=== PATIENT | female | born 1990 | race Caucasian/White ===

== ENCOUNTER 2024-01-24 23:25 | Inpatient (IN) ==
--- NOTE | 2024-01-24 23:39 | Emergency Department Note ---
Impression & Plan psychosis, Jeni, Agitation, Mental health impairment, Acute psychosis ED Provider Note Name: ANDREW VILLAGRAN Age: 33 Sex: Female Arrives Via: Walk-In Informant: Patient (poor historian secondary to acute psychiatric illness), significant other ( who notes he has been with the patient for 18 years) ED Provider: Jason Green MD Chief Complaint: Acute psychosis Impression: As per impressions above Medical Decision Makin-year-old female arrived initially to have her 8-day-old baby evaluated. This was first and there was no pre-bashir care. On arrival it was clear patient is acutely manic/psychotic. She is highly agitated and tangential unable to properly give the history of what is going on or understand how severely unwell she is. She is focused on the baby being unwell. That said, fortunately looks well and is periodically looking around and is feeding. Mother however is focused on the fact that patient is unresponsive & lethargic, despite child is clearly not lethargic. She is continuously saying she needs to hear her child's voice. Mother is confusing her name with baby's name and flipping [id number]. Patient's significant other notes that patient has not slept for over 5 days. She has been increasingly anxious about her child. Baby was born at home without any pre or care. Baby has been now seen in the last 48 hours several times by medical director of hospice. Father denies mother having any history of mental health disorder or previous hospitalizations. He does note that she is at times had some agitation but never to this degree. Father is requesting that mother be treated as he feels she is not herself. Due to patient's severity of agitation risk of harming herself or others including her 8-day-old that she is not willing to give up to be evaluated, it was felt mother requires psychiatric management. Two-physician 302 was pursued given acuity and severity of situation. Patient was given IM Ativan and Haldol with vast improvement in her agitation. She eventually fell asleep and slept for several hours. Monitored without issue. Electrolyte and other laboratory workup is unremarkable. A TSH is unremarkable. Patient is not having any neurologic deficits and on awakening denies any headaches or other concerning signs or symptoms. Continues to be a bit tangential although is much calmer. She continues to not fully understand the severity of the situation. Triage/Nursing Notes reviewed by Me Differential:Mood disorder, infection, hypoglycemia, electrolyte abnormalities, cardiac sources, intracerebral event, toxicologic, trauma, neurologic, as well as other pathologies. Vital Signs: reviewed and remarkable for no significant abnormalities Interventions: Ativan 2 mg IM, Haldol 5 mg IM Labs:ED labs Reviewed by me and remarkable for no significant abnormalities. Positive for methamphetamines in system. Of note patient's PDMP reveals regular prescription for Adderall. Cardiac/Tele Monitoring: Cardiac Monitoring: An Order was placed for continuous cardiac monitoring. The monitor shows a rate of 80 with a normal sinus rhythm. Consults:Discussed with mental health case management who agree with plan for hospitalization for 302 psychiatric commitment. Plan: Disposition: Signed out to Dr Ragsdale pending placement and disposition Condition: Good PDMP: PDMP: The [place] Prescription Drug Monitoring Program was reviewed regarding this patient. Monthly prescription for Adderall consistent with a twice daily dosing schedule. History of Present Illness: 33-year-old female arrives for evaluation of her child's wellbeing. On arrival patient is manic altered and acting abnormally. Patient becoming increasingly aggressive throughout her stay. Patient is unable to understand the risks to her baby. Father took the baby from mother and handed baby to ER staff saying please take care of her. He then asked that this patient be taking care of. Mother states she is fine. She admits she has not slept in several days. She notes she is just very worried about her child. Past Medical History: Mother too manic to get history Home Medications: Denies medications Allergies: Denies allergies Vitals:Blood Pressure: 142/76, Pulse 84, RR 18, T 36.5C, O2 99% on RA Physical Exam: GENERAL: Patient is acutely psychotic and manic agitated acting abnormally. Not allowing me to do evaluate chest abdomen back NEUROLOGIC: Alert and oriented. No focal neurologic deficits appreciated SKIN: No rash, no jaundice, no diaphoresis. PSYCH: Tangential, manic, agitated, not following commands GCS: 15 ED Course: Times/Reassessments: At initial evaluation patient was being increasingly agitated to the point where she did grab me by the arm however immediately released when I pulled back. Witnessed by nursing staff Patient sedated with Ativan and Haldol to protect herself and others. I was unable to verbally deescalate nor re-direct the patient. The patient's combative behavior was risking a catastrophe. To protect the staff and the patient from harm it was necessary to chemicallyrestrain the patient. Repeat evaluation patient is breathing comfortably with clear lung sounds, normal cardiac exam and sleeping soundly. Critical Care: I have personally spent 40 minutes of critical care time in the direct management of this patient. Acute Psychosis requiring chemical sedation. This was a life/limb threatening event. This 40 minutes is in excess of all separately billable procedures. Jason Green MD Past Med/Surg History Problem List (Updated 01/25/24 @ 03:27 by Jason Green MD) psychosis (Acute) Acute psychosis (Acute) Mental health impairment (Acute) Agitation (Acute) Jeni (Acute) Social History Smoking Status: Never smoker Feels Safe at Home: Yes Allergies Allergies Allergy/AdvReac Type Severity Reaction Status Date / Time No Known Allergies Allergy Unverified 01/25/24 00:13 Home Meds Home Medications Medication Instructions Recorded Confirmed Adderall 20 mg PO BID 01/25/24 01/25/24 Results & Data (ED) Vital Signs Vital Signs - 24 hr 01/24/24 23:33 01/24/24 23:34 01/24/24 23:42 Temperature 36.5 C Temperature Source Oral Pulse Rate 147 H 144 H 105 H Pulse Rate [Finger] Pulse Rate from SpO2 Sensor 152 H Respiratory Rate 24 18 Respiratory Effort / Characteristics Respiratory Depth Blood Pressure 172/111 H Blood Pressure [Right Arm] Blood Pressure Mean 131 Blood Pressure Mean [Right Arm] Pulse Oximetry 98 95 Oxygen Delivery Method Room Air Sepsis Recent Fever Within 48 Hours No Sepsis New/Unexplained Change in Mental Status No Sepsis Action Taken by Nursing No Action Required 01/24/24 23:45 01/24/24 23:46 01/24/24 23:46 Temperature Temperature Source Pulse Rate 105 H Pulse Rate [Finger] Pulse Rate from SpO2 Sensor 104 H Respiratory Rate 24 Respiratory Effort / Characteristics Respiratory Depth Blood Pressure 120/81 120/81 Blood Pressure [Right Arm] Blood Pressure Mean 99 99 Blood Pressure Mean [Right Arm] Pulse Oximetry 96 Oxygen Delivery Method Sepsis Recent Fever Within 48 Hours Sepsis New/Unexplained Change in Mental Status Sepsis Action Taken by Nursing 01/24/24 23:47 01/24/24 23:57 01/25/24 00:02 Temperature Temperature Source Pulse Rate 90 Pulse Rate [Finger] 97 H Pulse Rate from SpO2 Sensor 112 H Respiratory Rate 18 18 Respiratory Effort / Characteristics Non-Labored Spontaneous Respiratory Depth Normal Blood Pressure 120/81 Blood Pressure [Right Arm] 109/64 Blood Pressure Mean 94 Blood Pressure Mean [Right Arm] 79 Pulse Oximetry 95 96 95 Oxygen Delivery Method Room Air Room Air Sepsis Recent Fever Within 48 Hours Sepsis New/Unexplained Change in Mental Status Sepsis Action Taken by Nursing 01/25/24 00:02 01/25/24 00:02 01/25/24 00:06 Temperature Temperature Source Pulse Rate Pulse Rate [Finger] Pulse Rate from SpO2 Sensor 93 H Respiratory Rate Respiratory Effort / Characteristics Respiratory Depth Blood Pressure 109/64 109/64 Blood Pressure [Right Arm] Blood Pressure Mean 75 75 Blood Pressure Mean [Right Arm] Pulse Oximetry 95 Oxygen Delivery Method Sepsis Recent Fever Within 48 Hours Sepsis New/Unexplained Change in Mental Status Sepsis Action Taken by Nursing 01/25/24 00:12 01/25/24 00:21 01/25/24 00:30 Temperature Temperature Source Pulse Rate Pulse Rate [Finger] Pulse Rate from SpO2 Sensor 95 H 96 H 93 H Respiratory Rate Respiratory Effort / Characteristics Respiratory Depth Blood Pressure Blood Pressure [Right Arm] Blood Pressure Mean Blood Pressure Mean [Right Arm] Pulse Oximetry 95 95 95 Oxygen Delivery Method Sepsis Recent Fever Within 48 Hours Sepsis New/Unexplained Change in Mental Status Sepsis Action Taken by Nursing 01/25/24 00:42 01/25/24 00:54 01/25/24 01:00 Temperature Temperature Source Pulse Rate Pulse Rate [Finger] Pulse Rate from SpO2 Sensor 91 H 92 H 90 Respiratory Rate Respiratory Effort / Characteristics Respiratory Depth Blood Pressure Blood Pressure [Right Arm] Blood Pressure Mean Blood Pressure Mean [Right Arm] Pulse Oximetry 95 95 95 Oxygen Delivery Method Sepsis Recent Fever Within 48 Hours Sepsis New/Unexplained Change in Mental Status Sepsis Action Taken by Nursing 01/25/24 01:03 01/25/24 01:05 01/25/24 01:05 Temperature Temperature Source Pulse Rate 93 H Pulse Rate [Finger] Pulse Rate from SpO2 Sensor 90 Respiratory Rate 18 Respiratory Effort / Characteristics Respiratory Depth Blood Pressure 95/57 L 95/57 L Blood Pressure [Right Arm] Blood Pressure Mean 69 68 Blood Pressure Mean [Right Arm] Pulse Oximetry 95 97 Oxygen Delivery Method Room Air Sepsis Recent Fever Within 48 Hours Sepsis New/Unexplained Change in Mental Status Sepsis Action Taken by Nursing 01/25/24 01:05 01/25/24 01:18 01/25/24 01:33 Temperature Temperature Source Pulse Rate Pulse Rate [Finger] Pulse Rate from SpO2 Sensor 73 87 Respiratory Rate Respiratory Effort / Characteristics Respiratory Depth Blood Pressure 95/57 L Blood Pressure [Right Arm] Blood Pressure Mean 68 Blood Pressure Mean [Right Arm] Pulse Oximetry 97 96 Oxygen Delivery Method Sepsis Recent Fever Within 48 Hours Sepsis New/Unexplained Change in Mental Status Sepsis Action Taken by Nursing 01/25/24 01:54 01/25/24 02:06 01/25/24 02:30 Temperature Temperature Source Pulse Rate Pulse Rate [Finger] Pulse Rate from SpO2 Sensor 87 85 Respiratory Rate Respiratory Effort / Characteristics Non-Labored Respiratory Depth Normal Blood Pressure Blood Pressure [Right Arm] Blood Pressure Mean Blood Pressure Mean [Right Arm] Pulse Oximetry 96 96 Oxygen Delivery Method Sepsis Recent Fever Within 48 Hours Sepsis New/Unexplained Change in Mental Status Sepsis Action Taken by Nursing 01/25/24 02:58 Temperature Temperature Source Pulse Rate 84 Pulse Rate [Finger] Pulse Rate from SpO2 Sensor Respiratory Rate 18 Respiratory Effort / Characteristics Respiratory Depth Blood Pressure 142/76 H Blood Pressure [Right Arm] Blood Pressure Mean 98 Blood Pressure Mean [Right Arm] Pulse Oximetry 99 Oxygen Delivery Method Room Air Sepsis Recent Fever Within 48 Hours Sepsis New/Unexplained Change in Mental Status Sepsis Action Taken by Nursing Laboratory Data 01/24/24 23:45 01/24/24 23:45 Lab Results 01/24/24 01/24/24 01/25/24 Range/Units 23:41 23:45 02:30 WBC 9.66 (4.8-10.8) K/ul RBC 3.80 L (4.20-5.40) M/uL Hgb 11.5 L (12.0-16.0) g/dl Hct 33.7 L (37.0-47.0) % MCV 88.7 (80.0-100.0) fL MCH 30.3 (25.0-34.0) pg MCHC 34.1 (32.0-36.0) g/dL RDW Std Deviation 39.6 (36.4-46.3) fL RDW Coeff of Ismael 12.4 (11.5-14.5) % Plt Count 387 (130-400) K/uL MPV 10.5 (9.4-12.4) fL Immature Gran % (Auto) 0.5 % Neut % (Auto) 77.0 % Lymph % (Auto) 17.2 % [place] % (Auto) 4.8 % Eos % (Auto) 0.2 % Baso % (Auto) 0.3 % Neut # (Auto) 7.44 H (1.40-6.50) K/uL Lymph # (Auto) 1.66 (1.20-3.40) K/uL [place] # (Auto) 0.46 (0.11-0.59) K/uL Eos # (Auto) 0.02 (0.00-0.50) K/uL Baso # (Auto) 0.03 (0.00-0.20) K/uL Immature Gran # (Auto) 0.05 (0.01-0.20) K/uL Sodium 135 L (136-145) mmol/L Potassium 3.3 L (3.5-5.1) mmol/L Chloride 102 (98-107) mmol/L Carbon Dioxide 23 (21-32) mmol/L Anion Gap 10 (3-11) BUN 10 (6-23) mg/dl Creatinine 0.64 (0.6-1.2) mg/dl Est Cr Clr Drug Dosing 101.6 ml/min eGFR 120.34 BUN/Creatinine Ratio 15.6 (10-20) Glucose 107 H (70-99(Fasting)) mg/dl Calcium 9.2 (8.6-10.3) mg/dl Total Bilirubin 0.3 (0.2-1.0) mg/dl AST 32 (13-39) U/L ALT 37 (7-52) U/L Alkaline Phosphatase 109 H (34-104) U/L Total Protein 6.4 (6.0-8.3) gm/dl Albumin 3.7 (3.4-5.0) gm/dl Globulin 2.7 (2.5-4.0) gm/dl Albumin/Globulin Ratio 1.4 (0.9-2) TSH 4.061 (0.300-4.500) uIu/ml Urine Color Yellow Urine Appearance Clear (Clear) Urine pH 7.5 (4.5-7.5) Ur Specific [place] 1.007 (1.000-1.030) Urine Protein Negative (Negative) Urine Glucose (UA) Negative (Negative) Urine Ketones Negative (Negative) Urine Blood Negative (Negative) Urine Nitrite Negative (Negative) Urine Bilirubin Negative (Negative) Urine Urobilinogen Negative (Negative) Ur Leukocyte Esterase Trace H (Negative) Urine WBC (Auto) 0-5 (0-5) /hpf Urine RBC (Auto) 0-2 (0-2) /hpf U Hyaline Cast (Auto) 0-2 (0-2) /lpf U Epithel Cells (Auto) 0-2 (0-2) /hpf Urine Bacteria (Auto) None Seen (None Seen) Salicylates < 3.0 L (3.0-30) mg/dl Urine Opiates Screen Neg (Neg) Ur Methadone, Qual Neg (Neg) Urine Fentanyl Screen Neg (Neg) Acetaminophen < 3 L (10-30) ug/ml Urine Barbiturates Neg (Neg) Ur Phencyclidine (PCP) Neg (Neg) U Amphetamin/Meth Scrn Pos H (Neg) MDMA (Ecstasy) Screen Neg (Neg) U Benzodiazepines Scrn Neg (Neg) Ur Cocaine Metabolite Neg (Neg) U Marijuana (THC) Screen Neg (Neg) Ethyl Alcohol mg/dL < 10.0 (<10.0) mg/dl SARS-CoV-2, RNA, NAAT NEGATIVE (NEGATIVE) Administered Medications Discontinued Medications Haloperidol Lactate (Haloperidol Lactate 5 Mg/Ml 1 Ml Vial) 5 mg IM NOW STA Stop: 01/24/24 23:39 Last Admin: 01/24/24 23:41 Dose: 5 mg Documented By: BALA Lorazepam (Lorazepam 1 Mg/1 Ml Syr Ed Inj Use) 2 mg IM ONE STA Stop: 01/24/24 23:40 Last Admin: 01/24/24 23:41 Dose: 2 mg Documented By: BALA Discharge Plan Visit Data Chief Complaint: Mental Health Evaluation Stated Complaint: MENTAL HEALTH EVAL ED Provider: Chacorta Ragsdale Discharge Problem: psychosis, Jeni, Agitation, Mental health impairment, Acute psychosis Forms Stand Alone Forms: My [facility] [employer], Suicide Prevention Resources Prescriptions Prescriptions: No Action Adderall 20 mg PO BID Referrals Referrals: PCP,NO [Primary Care Provider] -
[2024-01-24] MEDS: HALOPERIDOL LACTATE 5 MG/ML 1 ML VIAL IM STA (23:41)
[2024-01-24] MEDS: LORazepam 1 MG/1 ML SYR ED Inj Use IM STA (23:41)
[2024-01-25 01:25] LABS: Basophils # (auto) 0.03 K/uL (0.00-0.20); Basophils % (auto) 0.3 %; Eosinophils # (auto) 0.02 K/uL (0.00-0.50); Eosinophils % (auto) 0.2 %; Hematocrit (blood only) 33.7 % (37.0-47.0); Hemoglobin 11.5 g/dl (12.0-16.0); Immature Granulocytes # (auto) 0.05 K/uL (0.01-0.20); Immature Granulocytes % (auto) 0.5 %; Lymphocytes # (auto) 1.66 K/uL (1.20-3.40); Lymphocytes % (auto) 17.2 %; Mean Corpuscular Hemoglobin 30.3 pg (25.0-34.0); Mean Corpuscular Hgb Conc 34.1 g/dL (32.0-36.0); Mean Corpuscular Volume 88.7 fL (80.0-100.0); Mean Platelet Volume 10.5 fL (9.4-12.4); Monocytes # (auto) 0.46 K/uL (0.11-0.59); Monocytes % (auto) 4.8 %; Neutrophils # (auto) 7.44 K/uL (1.40-6.50); Platelet Count 387 K/uL (130-400); RDW Coefficient of Variation 12.4 % (11.5-14.5); RDW Standard Deviation 39.6 fL (36.4-46.3); White Blood Count 9.66 K/ul (4.8-10.8)
[2024-01-25 01:29] LABS: Albumin Level 3.7 gm/dl (3.4-5.0); Bilirubin,Total 0.3 mg/dl (0.2-1.0); Calcium 9.2 mg/dl (8.6-10.3); Potassium 3.3 mmol/L (3.5-5.1)
[2024-01-25 01:35] LABS: Albumin Globulin Ratio 1.4 (0.9-2); BUN Creatinine Ratio 15.6 (10-20); Creatinine Clr Calc Pharmacy 101.6 ml/min; Globulin 2.7 gm/dl (2.5-4.0); Total Protein 6.4 gm/dl (6.0-8.3)
[2024-01-25 02:49] LABS: Appearance Urine Clear (Clear); Bacteria Urine Automated None Seen (None Seen); Bilirubin Urine Negative (Negative); Blood Urine Negative (Negative); Cast Urine Automated 0-2 /lpf (0-2); Color Urine Yellow; Epithelial Cell Urine Auto 0-2 /hpf (0-2); Glucose Urine UA Negative (Negative); Ketones Urine Negative (Negative); Leukocyte Esterase Urine Trace (Negative); Nitrite Urine Negative (Negative); Protein Urine Negative (Negative); RBC Urine Automated 0-2 /hpf (0-2); Specific Gravity Urine 1.007 (1.000-1.030); Urobilinogen Urine Negative (Negative); WBC Urine Automated 0-5 /hpf (0-5); pH Urine 7.5 (4.5-7.5)
[2024-01-25 03:18] LABS: Acetaminophen < 3 ug/ml (10-30); Salicylate < 3.0 mg/dl (3.0-30)
[2024-01-25 03:34] LABS: Thyroid Stimulating Hormone 4.061 uIu/ml (0.300-4.500)
[2024-01-25 03:59] LABS: Amphetamines+Metham, Urine Pos (Neg); Barbiturates, Urine Neg (Neg); Benzodiazepine, Urine Neg (Neg); Cocaine, Urine Neg (Neg); Fentanyl, Urine Neg (Neg); MDMA (Ecstacy), Urine Neg (Neg); Marijuana, Urine Neg (Neg); Methadone, Urine Neg (Neg); Opiate, Urine Neg (Neg); Phencyclidine, Urine Neg (Neg)
--- NOTE | 2024-01-25 06:55 | Emergency Department Note ---
ED Visit Note This patient is a 33-year-old female who was signed out to me at shift change. She had been previously medically cleared. She apparently has psychosis. She is currently being evaluated by [facility] she was seen and evaluated in the ER by Dr. Agudelo. She says that [facility] cannot keep her because of staffing issues at present but she did order medications and they recommended Zyprexa to be started and used as needed. Bed search continues and the patient will be signed out at shift change to Dr. Sam. .
--- NOTE | 2024-01-25 11:35 | Psychiatric Consultation ---
Date of Consultation January 25, 2024 Impression / Recommendations Impression Mariella is a 33 yo woman 8 days s/p delivery of baby girl with no OB nor care presented to the emergency department seeking care for her infant and found to have psychosis and manic behavior, now on 302 commitment and admitted medically due to new vaginal bleeding. Psychiatry consulted for post psychosis. Diagnostically consistent with psychosis, which can present with symptoms of donnie, intense anxiety and disorganization. Post psychosis can in rare circumstances lead to delusions that increase risk of suicide and infanticide so this is considered a psychiatric emergency and requires ongoing psychiatric treatment and hospitalization once medically stable. Agree that she meets involuntary 302 commitment criteria, she remains on a 302 commitment. Olanzapine is considered one of the safer options for post psychosis and is generally considered safe in breastmilk. Therefore advise use of olanzapine. If further symptoms of donnie emerge or sleep remains challenging could consider [place] use in the future, but prefer to avoid for now given potential goals of /pumping and potential future use of milk. CYS involved. The patient remains hospitalized on a completed 302 involuntary commitment, (expiration timing will need to be verified with the original on the chart as unclear when this occurred during course of her evaluation in the ED). This patient must remain on safety precautions with a 1-on-1 and is unable to leave the hospital AMA. Overall, I spent a total of 60 minutes with this case including review of chart records, review of labwork, direct evaluation of the patient at bedside, counseling the patient, discussion of the patient with the emergency room provider, the ED CM, discussion with the psychiatric liason during clinical rounds, review of collateral historian information from the family and documentation in the electronic health record. (1) psychosis: Plan -Must remain on 1-on-1, cannot leave AMA -On 302 commitment, inpatient psychiatry bed search paused due to need for medical admission for workup of bleeding and lack of care -Medications: * Start olanzapine 5mg HS po * Olanzapine 5mg BID prn ODT for agitation/psychosis * Can also utilize ativan 1mg BID prn po for agitation if preferred * Hold prior to admission Adderall given current episode of psychosis -For behavioral emergency: olanzapine 10 mg IM x 1 (DO NOT exceed 20mg via IM sources per 24 hours, check EKG if IM dose required, NEVER co-administer with IM or IV benzodiazepines). Psych History Identifying Data 33 yo woman 8 days s/p delivery of baby girl with no OB nor care presented to the emergency department seeking care for her and found to have psychosis and manic behavior, now on 302 commitment and admitted medically due to new vaginal bleeding. Psychiatry consulted for post psychosis. Chief Complaint "I was supposed to hear Beti's voice, both see her and hear her". History of Present Illness Mariella presented to the emergency room with her partner and 8 day old baby seeking medical care for her daughter due to concerns she wasn't eating enough and having issues with constipation. While in the emergency room she was observed to have manic-type behaviors, confusion and her partner reported she not slept in about 5 days. She was very anxious about her daughter and required IM haldol and ativan and was placed on a 302 commitment due to the intensity of her symptoms and her lack of insight into the need for psychiatric attention and medical treatment. She was reported to sleep a few hours overnight after getting the haldol and ativan. On my assessment this morning she is focused on the charge level of her phone and her partner, Ej's, phone as he is planning to visit their daughter in the nursery upstairs. She makes multiple comments about wanting to ensure her daughter is getting enough breastmilk vs formula and it is clear she's been struggling to breastfed. Her partner notes that Mariella was not eating in the days prior to being in the hospital. This morning she is eating some fruit dipped in peanut butter. She feels the reason for her symptoms is because she and Ej "just need to talk and be on the same page". She denies any current SI nor HI but is tangential and has loosened associations in responding to this i.e. begins to reference need to hear her daughter's voice and to track her daughter's liquids in and out. Denies any past psychiatric history. Denies any family psychiatric history. ED notes reference that partner mentioned she possibly had experienced some periods of decreased sleep in the past but never to this extent. She apparently did not receive any care and reports she delivered her baby in the couple's car in a [employer] parking lot. States that their daughter will be seeing a plywood factory worker but hasn't yet (seems appointment will be set up once baby leaves the nursery when a safe placement can be identified by CYS). Further history per ED CM note from this morning on 01/25/2024: "Met with Mariella to read rights and attempt to complete mental health evaluation. Mariella was unable to participate in evaluation due to disorganized thinking. She was observed looking for her child in the blanket on her bed. Mariella grabbed the blanket and attempted to breast feed the blanket. Mariella was asked if she had a mental health history. She stated "oh, I have a history of crazy." Mariella stated talking about needing to care for baby and monitoring the baby's fluid intake. Mariella was advised that the baby is in the nursery being cared for. She was advised by RN that the baby had consumed two bottles and had two wet diapers. Mariella appears relieved that the baby was doing well. " Allergies Allergy/AdvReac Type Severity Reaction Status Date / Time No Known Allergies Allergy Unverified 01/25/24 00:13 Home Medications Medication Instructions Recorded Confirmed Type Adderall 20 mg PO BID 01/25/24 01/25/24 History Patient History Medical History ADHD Social History (Updated 01/25/24 @ 20:06 by Gala George PA-C) Smoking Status: Never smoker Hx Alcohol Use: No Feels Safe at Home: Yes Physical Exam Psychiatric: Orientation: alert, oriented to person, oriented to place and oriented to time Apperance: appropriately dressed Eye Contact: + fair eye contact Motor Behavior: + psychomotor agitation (restless) Speech: normal rate/rhythm/volume of speech (rapid) Affect: + anxious affect Mood: + anxious mood Thought Process: + tangential thought process and + looseness of associations Thought Content: + preoccupation Suicidal Thoughts: denies suicidal thoughts Homicidal Thoughts: denies homicidal thoughts Insight: + limited insight Judgment: + limited judgement Vital Signs (Past 24 Hours): Last Vital Signs Temp 36.5 C 01/24/24 23:42 Pulse 115 H 01/25/24 09:36 Resp 22 01/25/24 09:36 BP 141/94 H 01/25/24 09:36 Pulse Ox 100 01/25/24 09:36 O2 Del Method Room Air 01/25/24 09:36 Coding Level of Care Code 77934 IN/OBS CONSULT LVL 4,60M Diagnoses psychosis F53.1
[2024-01-25] MEDS ORDERED: OLANZapine ZYDIS 5 MG ORALLY DIS. TAB PO PRN (11:36)
[2024-01-25] MEDS: PRENATAL VITAMIN 1 TAB PO SCH (13:43)
--- NOTE | 2024-01-25 15:12 | Emergency Department Note ---
ED Visit Note I assumed care at the change of shift. The patient was under a involuntary psychiatric hold. She was a 302. She had presented with donnie and psychosis. The patient was from a home around 8 days ago. During the time under my care, she was complaining of some vaginal bleeding. An ultrasound was performed showing typical findings consistent with her recent delivery. No retained products of conception. Given the recent home , given her vaginal bleeding, given the circumstances of her involuntary commitment, psychiatric bed placement could not be obtained. The patient was denied at multiple facilities because of her other medical issues. I spoke with psychiatry case management. The decision was made for a medical admission at our hospital with a psychiatric consult. I did speak with Dr. Piña of [facility], he felt that the findings on ultrasound were typical given the circumstances, no emergent gynecologic intervention required. He will follow the patient as a consult while she is hospitalized. I did speak with case management, the on-call hospitalist was consulted. .
--- NOTE | 2024-01-25 16:48 | Ultrasound Report ---
ULTRASOUND OF THE PELVIS CLINICAL HISTORY: Vaginal bleeding. . COMPARISON STUDY: No priors TECHNIQUE: Real-time, grayscale, and color flow sonography of the pelvis is performed transabdominall y. Images are reviewed in the transverse and longitudinal planes. FINDINGS: Uterus: The postgravid uterus is enlarged and heterogeneous, measuring 11.9 x 6.6 x 8.6 cm. Endometrium: The endometrial canal is distended and filled with complex hypoechoic debris. No abnorma l vascularity is shown on color imaging Ovaries: The left ovary was not visualized due to overlying bowel gas. The right ovary is normal as i jabier, measuring 3.5 x 1.8 x 1.5 cm. Normal Doppler waveforms are shown within the right ovary. Pelvis: There is no free fluid in the cul-de-sac. No concerning adnexal lesion is seen. IMPRESSION: 1. The postgravid uterus is enlarged and heterogeneous. 2. The endometrial canal is distended and filled with complex hypoechoic debris. This likely represen ts blood products. No abnormal color flow is shown to suggest retained products of conception. Clinic al follow-up will be required. 3. The right ovary is normal as imaged. 4. Nonvisualization of the left ovary. ACT 112: Negative or not required by law. Electronically signed by: Eloy Coronado M.D. 01/25/2024 4:46 PM
--- NOTE | 2024-01-25 19:15 | History & Physical Report ---
Date of Service January 25, 2024 Assessment & Plan (1) psychosis: (2) ADHD: Plan: Patient is 33 year old female with PMH ADHD and recent vaginal delivery presented to ER on 01/24/24 for concern for her baby and was found to be manic and have psychotic features in ER. Initially in ER patient was given Haldol 5 mg IM and Ativan 2 mg IM. Labs unremarkable except for K: 3.3, UA unremarkable Psychiatrist was consulted and diagnosed psychosis and recommended admission. Patient was placed under 302 and search for psychiatry bed was attempted but failed. Psych consult. Recommends starting olanzapine 5mg po HS. Olanzapine 5mg ODT prn agitation/psychosis and holding home Adderall for now Will need continued psychiatry support and consultation Currently patient doing well and is A&O x 3 and calm and cooperative One to one observation Will have safe tray and suicidal precautions for now Substance Use: 02:30 urine tox screen: + amphetamines. Patient is on Adderall. Final drug screen pending Patient admitted to using marijuana during child but denies recurrent drug use to this provider. Case management involved given her baby status. is under care of hospital currently. Was alerted from ER nurse at 21:30 that patient admitted that significant other brought her in Suboxone today. States patient took Suboxone around 14:00 while in ER that her significant other had brought in to her CYS has already been involved and notified by correctional casework specialist in ER upon patient and baby's initial ER arrival last evening. branch office manager is updating CYS again given this new update of substance use branch office manager reports patient admitted to using Suboxone daily and used daily during her . Admits to getting Suboxone from street and not prescribed Obtain new urine drug screen now Given this new information I am recommending patient pump and dump breast milk until it is clarified what patient is actually consuming and the current condition of her . Post status: Reported home vaginal delivery of living female child on 01/16/24 per patient Having some vaginal bleeding Pelvic US showed endometrial canal is distended and filled with complex hypoechoic debris, likely represents blood products and no abnormal color flow is shown to suggest retained products of conception. ER physician spoke to AGATHA, Dr Piña foundation drill operator who did not recommend anything urgent and felt was normal given patient did not receive medical care with delivery and would be willing to see patient in consultation Consult OBGYN Patient having some difficulty with breast feeding and milk supply but thinks would like to try to continue to pump breast milk. I'm attempting in getting patient some support from women's health floor nurses. In meantime patient can attempt warm compresses and massage to breast prior to attempted pumping every 2 hours Given newly discovered substance abuse recommending patient pump and dump breast milk until it is clarified what patient is actually consuming and the current condition of her . Would not want to give infant unknown substances from mothers breast milk Case management involved as patient's is currently admitted at [facility] until patient has more stable mental/behavioral status. CYS is involved as above (3) Hypokalemia: Plan: K: 3.3 Magnesium: 1.6 Will replace KCl and magnesium orally as patient doesn't have saline lock at this time Previously poor oral intake but now eating and drinking well in ER throughout this afternoon BMP in am DVT Prophylaxis Ambulate Admit med surg Full Code as per discussion with pt Pt was seen and care coordinated with Dr White. See addendum I spent a total of 80 minutes reviewing notes, outpatient records, labs, medication, coordinating, documenting and providing care for this patient excluding time spent in the performance of separately billed services. History of Present Illness Chief Complaint: Psychosis Primary Care Provider: NO PCP Patient is 33 year old female with PMH ADHD and recent vaginal delivery presented to ER on 01/24/24 for concern for her baby. It is reported per ER chart review that patient was noted to be manic and have psychotic features. Initially in ER patient was given Haldol 5 mg IM and Ativan 2 mg IM. Patient was placed under 302 and search for psychiatry bed was attempted. Psychiatrist was consulted and diagnosed psychosis and recommended admission. It is reported that patient's infant has been hospitalized here at [facility] and is in nursery secondary to patients current mental status. During ER course patient was able to sleep and she currently reports is feeling much better. She has not required any additional medication. is at bedside. Patient admits hasn't been sleeping and hasn't been eating much. 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 Denies fever/chills, diaphoresis, N/V/D/C, STODDARD, dizziness, syncope, CP, SOB, cough, rhinorrhea, abdominal pain, extremity weakness, extremity edema, rashes, urinary symptoms. Patient currently denies SI/HI. PDMP reviewed and Adderall filled on a monthly basis, last filled on 01/12/2024 for 30-day supply States used marijuana during labor and delivery last week but otherwise does not use recreational drugs. During ER course case management has attempted getting patient placed for psychiatric admission however am told that she has not been accepted anywhere given her status. Pelvic US showed endometrial canal is distended and filled with complex hypoechoic debris, likely represents blood products and no abnormal color flow is shown to suggest retained products of conception. ER physician spoke to Dr Wang SNIDER foundation drill operator who did not recommend anything urgent and felt was normal and would be willing to see patient in consultation Allergies Allergy/AdvReac Type Severity Reaction Status Date / Time No Known Allergies Allergy Unverified 01/25/24 00:13 Home Medications Medication Instructions Recorded Confirmed Type Adderall 20 mg PO BID 01/25/24 01/25/24 History Past Med/Surg History Problem List (Updated 01/25/24 @ 20:26 by Gala George PA-C) Hypokalemia psychosis (Acute) Acute psychosis (Acute) Mental health impairment (Acute) Agitation (Acute) Jeni (Acute) Medical History ADHD Social History (Updated 01/25/24 @ 20:06 by Gala George PA-C) Smoking Status: Never smoker Hx Alcohol Use: No Feels Safe at Home: Yes Review of Systems Review of Systems: All systems reviewed & are unremarkable except as noted in HPI & below Physical Exam Physical Exam: General: no acute distress, WDWN Head: normocephalic, atraumatic Eyes: conjunctiva non-injected, anicteric Lungs: clear, no respiratory distress, no wheezing/rhonchi/rales CV: RRR, no murmur, no pretibial edema Abd: normal BS, soft, non-tender Ext: no cyanosis, no calf tenderness Neuro: A&O x 3, normal affect Skin: warm, dry Results & Data Results & Data Vital Signs (Past 12 Hours) Vital Signs Temp Pulse Pulse Resp BP BP Pulse Ox 01/25/24 17:17 36.6 C 01/25/24 17:16 108 H 20 132/74 100 01/25/24 13:46 111 H 18 152/99 H 100 01/25/24 13:05 120 H 20 167/103 H 99 01/25/24 09:36 115 H 22 141/94 H 100 O2 Del Method 01/25/24 17:17 01/25/24 17:16 Room Air 01/25/24 13:46 Room Air 01/25/24 13:05 Room Air 01/25/24 09:36 Room Air Laboratory Results Short CBC 01/24/24 Range/Units 23:45 WBC 9.66 (4.8-10.8) K/ul Hgb 11.5 L (12.0-16.0) g/dl Hct 33.7 L (37.0-47.0) % Plt Count 387 (130-400) K/uL BMP 01/24/24 23:45 Sodium 135 L Potassium 3.3 L Chloride 102 Carbon Dioxide 23 BUN 10 Creatinine 0.64 Glucose 107 H Calcium 9.2 Liver Function 01/24/24 Range/Units 23:45 Total Bilirubin 0.3 (0.2-1.0) mg/dl AST 32 (13-39) U/L ALT 37 (7-52) U/L Alkaline Phosphatase 109 H (34-104) U/L Albumin 3.7 (3.4-5.0) gm/dl Urine 01/25/24 Range/Units 02:30 Urine Color Yellow Urine Appearance Clear (Clear) Urine pH 7.5 (4.5-7.5) Ur Specific [place] 1.007 (1.000-1.030) Urine Protein Negative (Negative) Urine Glucose (UA) Negative (Negative) Diagnostic Findings Pelvis Ultrasound 01/25/24 15:47 ULTRASOUND OF THE PELVIS CLINICAL HISTORY: Vaginal bleeding. . COMPARISON STUDY: No priors TECHNIQUE: Real-time, grayscale, and color flow sonography of the pelvis is performed transabdominally. Images are reviewed in the transverse and longitudinal planes. FINDINGS: Uterus: The postgravid uterus is enlarged and heterogeneous, measuring 11.9 x 6.6 x 8.6 cm. Endometrium: The endometrial canal is distended and filled with complex hypoechoic debris. No abnormal vascularity is shown on color imaging Ovaries: The left ovary was not visualized due to overlying bowel gas. The right ovary is normal as imaged, measuring 3.5 x 1.8 x 1.5 cm. Normal Doppler waveforms are shown within the right ovary. Pelvis: There is no free fluid in the cul-de-sac. No concerning adnexal lesion is seen. IMPRESSION: 1. The postgravid uterus is enlarged and heterogeneous. 2. The endometrial canal is distended and filled with complex hypoechoic debris. This likely represents blood products. No abnormal color flow is shown to suggest retained products of conception. Clinical follow-up will be required. 3. The right ovary is normal as imaged. 4. Nonvisualization of the left ovary. ACT 112: Negative or not required by law. Electronically signed by: Eloy Coronado M.D. 01/25/2024 4:46 PM Supervising Physician Co-Signing Physician Notes Attending Addendum: Case reviewed with the advanced practitioner. I have personally performed a history and physical examination on the patient. I have reviewed the advanced practitioner's documentation on the date of service referenced in note, and I agree with, and take responsibility for the plan of care. please refer to her notes for full details patient seen and examined, records reviewed by myself as well on exam, patient seen with at bedside throughout whole encounter awake, alert, oriented x 3, answering questions appropriately states she feels better overall, mostly back to her baseline- agrees she is mostly back to her baseline denies headache, dizziness, nausea, chest pain, dyspnea, abdominal pain, problems with urination had some vaginal spotting earlier, no recurrence when inquired, patient denies alcohol, smoking or substance use only regular medication is aderrall as per patien no other symptoms VS noted and reviewed oriented x 3, not in distress, speaks in sentences with no effort nor accessory muscle use normal rate, regular rhythm, no murmurs clear breath sounds bilaterally non distended, soft, nontender no bipedal edema, erythema, warmth no neuro deficits all labs, imaging noted and reviewed ASSESSMENT AND PLAN> POST PSYCHOSIS hospitalist service requested to admit patient as Behavioral Unit has no bed availability and bed search for outpatient Psych facility is still in progress [address] as per Psych Olanzapine HS and PRN ordered per Psych, hold usual Aderrall awaiting further Psych recommendations upon re-evaluation tomorrow SUBOXONE USE denied by patient during hospitalist interview, but admitted to RN later in the evening will need to verify with patient re: prescriber and dose POST STATUS had an episode of vaginal spotting ED physician discussed case with Dr. Lane- transvaginal US reviewed, no urgent intervention recommended at this point, will follow patient as consult patient's under the care of [facility] Nursery Unit other diagnoses and plan of care as per advanced practitioner's notes Anjum White MD
[2024-01-25 20:09] LABS: Magnesium 1.6 mg/dl (1.7-2.4)
[2024-01-25] MEDS ORDERED: POLYETHYLENE (MIRALAX) 17 GM PACK PO PRN (21:29)
[2024-01-25] MEDS ORDERED: ONDANSETRON INJ 2 MG/ML 2 ML VIAL IV PRN (21:29)
[2024-01-25] MEDS: MAGNESIUM OXIDE 400 MG TAB PO SCH (21:47)
[2024-01-25] MEDS: POTASSIUM CHLORIDE CRTAB 20 MEQ TABCR PO STA (21:47)
[2024-01-25] MEDS: OLANZapine 5 MG TABLET PO SCH (21:47)
[2024-01-26 01:00] LABS: Amphetamines+Metham, Urine Pos (Neg); Barbiturates, Urine Neg (Neg); Benzodiazepine, Urine Neg (Neg); Cocaine, Urine Neg (Neg); Fentanyl, Urine Neg (Neg); MDMA (Ecstacy), Urine Neg (Neg); Marijuana, Urine Neg (Neg); Methadone, Urine Neg (Neg); Opiate, Urine Neg (Neg); Phencyclidine, Urine Neg (Neg)
[2024-01-26 06:57] LABS: Hematocrit (blood only) 37.9 % (37.0-47.0); Hemoglobin 12.7 g/dl (12.0-16.0); Mean Corpuscular Hemoglobin 30.7 pg (25.0-34.0); Mean Corpuscular Hgb Conc 33.5 g/dL (32.0-36.0); Mean Corpuscular Volume 91.5 fL (80.0-100.0); Mean Platelet Volume 10.2 fL (9.4-12.4); Platelet Count 402 K/uL (130-400); RDW Coefficient of Variation 13.1 % (11.5-14.5); RDW Standard Deviation 42.5 fL (36.4-46.3); Red Blood Count 4.14 M/uL (4.20-5.40); White Blood Count 8.05 K/ul (4.8-10.8)
[2024-01-26 07:15] LABS: BUN Creatinine Ratio 14.5 (10-20); Calcium 8.8 mg/dl (8.6-10.3); Creatinine Clr Calc Pharmacy 118.2 ml/min; Magnesium 1.8 mg/dl (1.7-2.4); Potassium 4.1 mmol/L (3.5-5.1)
[2024-01-26] MEDS: POTASSIUM CHLORIDE CRTAB 20 MEQ TABCR PO ONE (09:40)
--- NOTE | 2024-01-26 15:03 | Hospitalist Progress Note ---
Date of Service January 26, 2024 Assessment & Plan (1) psychosis: (2) ADHD: (3) Hypokalemia: Plan Patient is 33 year old female with PMH ADHD and recent vaginal delivery presented to ER on 01/24/24 for concern for her baby and was found to be manic and have psychosis. psychosis Initially in ER patient was given Haldol 5 mg IM and Ativan 2 mg IM. Labs unremarkable except for K: 3.3, UA unremarkable Psychiatrist was consulted and diagnosed psychosis and recommended admission Patient was placed under 302 and search for psychiatry bed was attempted but failed. Psych consult. Recommends starting olanzapine 5mg po HS. Olanzapine 5mg ODT prn agitation/psychosis and holding home Adderall for now Will need continued psychiatry support and consultation Vital signs stable, no acute lab abnormalities. Doing well from a medical perspective Patient and calm and cooperative, continue 1:1, safe tray and suicidal precautions for now Substance Use 02:30 urine tox screen: + amphetamines. Patient is on Adderall. Final drug screen pending Patient admitted to using marijuana during child but denies recurrent drug use to this provider. Case management involved given her baby status. is under care of hospital currently. Alerted last evening that brought patient Suboxone, which she took in ED around 1400. Is not prescribed this and gets "off the street". States she used this throughout CYS involved with CM regarding care of child Patient not interested in nursing at this point, pumping for comfort and has received support from network relations consultant Post status Reported home vaginal delivery of living female child on 01/16/24 per patient Having some vaginal bleeding Pelvic US showed endometrial canal is distended and filled with complex hypoechoic debris, likely represents blood products and no abnormal color flow is shown to suggest retained products of conception. ER physician spoke to AGATHA, Dr Piña account resolution analyst who did not recommend anything urgent and felt was normal given patient did not receive medical care with delivery and would be willing to see patient in consultation Consult OBGYN Hypomagnesemia Hypokalemia Replaced DVT Prophylaxis: Ambulate Code: FULL Dispo: Admit to med/surg, remains in psych ED bed Admit med surg Pt was seen and care coordinated with Dr. Pfeiffer. See addendum I spent a total of 55 minutes reviewing notes, outpatient records, labs, medication, coordinating, documenting and providing care for this patient excluding time spent in the performance of separately billed services. Admission and Anticipated Discharge Date Admission Date: January 25, 2024 Supervising Physician Co-Signing Physician Notes Patient was seen and examined at bedside as a follow-up of medical management for psychosis and substance use disorder. Psychiatry and gynecology are also on board. Patient is under 302. psychiatric medications per psychiatry. Holding home Adderall for now. Labs in AM. Management of status per HOME RESTORATION SERVICE CLEANER. On exam: Patient on room air, NAD, lacks insight. I have seen and examined the patient and have discussed the case with the provider above. I agree with the assessment and plan as stated. time spent 15 min. Subjective Patient seen and examined in A6. She was sitting on the ground eating her food and scribbling notes on a piece of paper. Is not able to reliably explain why she is in the hospital but mentions her daughter and repeatedly. Wants to leave. Not in any physical pain but upset emotionally having to be in the hospital. Feeling hungry with 1 loose bowel movement this morning. Review of Systems Review of Systems: At least ten systems reviewed and negative except as noted in the HPI. Physical Exam Physical Exam: Gen: WD/WN, NAD, sitting on the floor writing notes, slow to speak, needs to be redirected HEENT: Normocephalic, atraumatic, mucous membranes moist Lung: Clear to Auscultation bilaterally Heart: Regular rate, regular rhythm Abdomen: Soft, NT, ND +BS x 4 Extremities: no edema Skin: Warm, no rash Results & Data Results & Data Vital Signs (Past 12 Hours) Vital Signs Temp Pulse Resp BP Pulse Ox 01/26/24 13:59 99 H 18 135/87 100 01/26/24 09:37 36.7 C 90 16 134/74 100 Laboratory Results Short CBC 01/26/24 Range/Units 05:49 WBC 8.05 (4.8-10.8) K/ul Hgb 12.7 (12.0-16.0) g/dl Hct 37.9 (37.0-47.0) % Plt Count 402 H (130-400) K/uL BMP 01/26/24 05:49 Sodium 141 Potassium 4.1 D Chloride 107 Carbon Dioxide 28 BUN 8 Creatinine 0.55 L Glucose 81 Calcium 8.8 Diagnostic Findings Pelvis Ultrasound 01/25/24 15:47 ULTRASOUND OF THE PELVIS CLINICAL HISTORY: Vaginal bleeding. . COMPARISON STUDY: No priors TECHNIQUE: Real-time, grayscale, and color flow sonography of the pelvis is performed transabdominally. Images are reviewed in the transverse and longitudinal planes. FINDINGS: Uterus: The postgravid uterus is enlarged and heterogeneous, measuring 11.9 x 6.6 x 8.6 cm. Endometrium: The endometrial canal is distended and filled with complex hypoechoic debris. No abnormal vascularity is shown on color imaging Ovaries: The left ovary was not visualized due to overlying bowel gas. The right ovary is normal as imaged, measuring 3.5 x 1.8 x 1.5 cm. Normal Doppler waveforms are shown within the right ovary. Pelvis: There is no free fluid in the cul-de-sac. No concerning adnexal lesion is seen. IMPRESSION: 1. The postgravid uterus is enlarged and heterogeneous. 2. The endometrial canal is distended and filled with complex hypoechoic debris. This likely represents blood products. No abnormal color flow is shown to suggest retained products of conception. Clinical follow-up will be required. 3. The right ovary is normal as imaged. 4. Nonvisualization of the left ovary. ACT 112: Negative or not required by law. Electronically signed by: Eloy Coronado M.D. 01/25/2024 4:46 PM
--- NOTE | 2024-01-26 20:39 | Psychiatric Progress Note ---
Date of Service January 26, 2024 Impression / Recommendations Impression Mariella is a 33 yo woman 11 days s/p delivery of baby girl with no OB nor care presented to the emergency department seeking care for her infant and found to have psychosis and manic behavior, now on 302 commitment and admitted medically due to new vaginal bleeding. Psychiatry involved for post psychosis. Although less agitated continues to have poor insight. Remains paranoid and with intermittent bizarre/odd behavior. She continues to meet involuntary 302 commitment criteria & remains on a 302 commitment which will on 01/29/24. If patient is still here will assess for possible extension of commitment to 303 when closer to that date. This patient must remain on safety precautions with a 1-on-1 and is unable to leave the hospital AMA. CYS involved and are determining disposition of . Overall, I spent a total of 60 minutes with this case, including review of chart, direct evaluation of the patient, counseling the patient, communication with family, reviewing medication, coordination of care with hospitalist service, risk assessment, and documentation. (1) psychosis: Plan -Must remain on 1-on-1, cannot leave AMA -On 302 commitment, inpatient psychiatry bed search pending medical clearance. -Medications: * Continue olanzapine 5mg HS po * Olanzapine 5mg BID prn ODT for agitation/psychosis * Can also utilize ativan 1mg BID prn po for agitation if preferred * Hold prior to admission Adderall given current episode of psychosis -For behavioral emergency: Decrease olanzapine to 5 mg IM x 1 (DO NOT exceed 20mg via IM sources per 24 hours, check EKG if IM dose required, NEVER co- administer with IM or IV benzodiazepines). Risk Factors Assessment Mental Health Diagnoses: Yes Substance Use Disorders: Yes Protective Factors Assessment : Yes Responsible for Young Children: Yes Stable Relationships: Yes Supportive Family: Yes Interval History Identifying Information 33 year old F currently on a 302 for post- psychosis, being monitored for suboxone withdrawal. Baby born on 01/16/24 with CYS involvement currently. Psychiatric bed search ongoing. Chief Complaint "I don't know why I'm in here". Subjective Subjective Patient was seen & assessed and interval progress reviewed with treatment team & some collateral obtained from patient's mother who was present with patient today. Patient is sitting on mattress talking with her mother - was cooperative throughout interview. Noted to struggle significantly with insight into her illness - although she makes several references to behaving strangely when she first arrived in ED, she minimizes the severity of behavior and denies having any difficulties outside of lack of sleep since baby was born. Remains quite focused on the fact that she and came to get baby chacked due to no wet diapers and not for their own assessment - struggles to understand why baby was taken to nursery. Although she refers to baby not having wet diapers and being "too small" and "not moving enough", is unable to discuss this in any detail as defenses are quite high. Does not appear to understand extent of her and husbands lack of ability to provide adequate care to . Lacks understanding of concerns regarding lack of OB care throughout and delivery - says she wanted a home because wanted to "catch the baby himself", does not appear to appreciate the risk of this (especially as the y had no trained supports such as chief clinical officer or rail filler). Minimizes the fact that baby was born in the car. As interview progress becomes increasingly more defended and affect more constricted. Observed to have a paper covered extensively in writing - reads from it at times, it seems she has been writing down interactions with staff (in some cases word for word), however unclear why she is doing this. She denies over AVH or delusions, however does appear paranoid at times and recently observed cradling a blan ket as if it were a baby. Of note, patient does not want to breastfeed any longer - was finding it too stressful and overwhelming to manage. Spoke to patients mother outside of room. She reported that patient had cut off contact several months ago, for unclear reasons. As per mother, she had offered patient financial support as patient told her she was unable to afford care. Patient refused this however and then "disappeared", possibly first signs of psychosis (paranoia). Mom only found out that baby was born after she was called yesterday. She said that patients father () and his parents were now also involved. She said patient has no prior significant psychiatric history. Physical Exam Psychiatric Orientation: alert, oriented to person, oriented to place and oriented to time Apperance: appropriately dressed Eye Contact: + fair eye contact Motor Behavior: no abnormal motor movements Speech: normal rate/rhythm/volume of speech (increased latency) Affect: + depressed affect (constricted) Mood: + dysphoric mood Thought Process: + circumstantial thought process Thought Content: + preoccupation Suicidal Thoughts: denies suicidal thoughts Homicidal Thoughts: denies homicidal thoughts Insight: + poor insight Judgment: + poor judgement Vital Signs (Past 24 Hours) Last Vital Signs Temp 36.7 C 01/26/24 09:37 Pulse 99 H 01/26/24 13:59 Resp 18 01/26/24 13:59 BP 135/87 01/26/24 13:59 Pulse Ox 100 01/26/24 13:59 O2 Del Method Room Air 01/26/24 00:21 Results & Data ([facility]) Laboratory Results Laboratory Results - last 24 hr 01/26/24 01/26/24 00:11 05:49 WBC 8.05 RBC 4.14 L Hgb 12.7 Hct 37.9 MCV 91.5 MCH 30.7 MCHC 33.5 RDW Std Deviation 42.5 RDW Coeff of Ismael 13.1 Plt Count 402 H MPV 10.2 Sodium 141 Potassium 4.1 D Chloride 107 Carbon Dioxide 28 Anion Gap 6 BUN 8 Creatinine 0.55 L Est Cr Clr Drug Dosing 118.2 eGFR 124.82 BUN/Creatinine Ratio 14.5 Glucose 81 Calcium 8.8 Magnesium 1.8 Urine Opiates Screen Neg Ur Methadone, Qual Neg Urine Fentanyl Screen Neg Urine Barbiturates Neg Ur Phencyclidine (PCP) Neg U Amphetamines Confirm Pending U Amphetamin/Meth Scrn Pos H U Methamphetamin Confrm Pending MDMA (Ecstasy) Screen Neg U Benzodiazepines Scrn Neg Ur Cocaine Metabolite Neg U Marijuana (THC) Screen Neg Drug Screen Comment Pending Current Inpatient Medications Current Inpatient Medications: Current Inpatient Medications Acetaminophen (Acetaminophen 325 Mg Tab) 650 mg PO Q4H PRN PRN Reason: pain/fever Stop: 02/24/24 21:28 Magnesium Oxide (Magnesium Oxide 400 Mg Tab) 400 mg PO BID [facility]TER Stop: 02/24/24 20:59 Last Admin: 01/26/24 09:40 Dose: 400 mg Olanzapine (Olanzapine 5 Mg Tablet) 5 mg PO HS [facility]TER Stop: 02/24/24 20:59 Last Admin: 01/25/24 21:47 Dose: 5 mg Olanzapine (Olanzapine Zydis 5 Mg Orally Dis. Tab) 5 mg PO BID PRN PRN Reason: Agitation/Psychosis Stop: 02/24/24 20:59 Ondansetron HCl (Ondansetron Inj 2 Mg/Ml 2 Ml Vial) 4 mg IV Q6H PRN PRN Reason: Nausea Stop: 02/24/24 21:28 Polyethylene Glycol (Polyethylene (Miralax) 17 Gm Pack) 17 gm PO DAILY PRN PRN Reason: Constipation Stop: 02/24/24 21:28 Prenat Multivit/[place]/Iron/Folic Ac ( Vitamin 1 Tab) 1 tab PO [facility] [place] Stop: 02/24/24 11:59 Last Admin: 01/26/24 09:40 Dose: 1 tab
[2024-01-27] MEDS: ACETAMINOPHEN 325 MG TAB PO PRN (08:18)
--- NOTE | 2024-01-27 15:15 | Hospitalist Progress Note ---
Date of Service January 27, 2024 Assessment & Plan (1) psychosis: (2) ADHD: (3) Hypokalemia: Plan Patient is 33 year old female with PMH ADHD and recent vaginal delivery presented to ER on 01/24/24 for concern for her baby and was found to be manic and have psychosis. psychosis Initially in ER patient was given Haldol 5 mg IM and Ativan 2 mg IM. Labs unremarkable except for K: 3.3, UA unremarkable Psychiatrist was consulted and diagnosed psychosis and recommended admission Patient was placed under 302 and search for psychiatry bed was attempted but failed. Psych consult. Recommends starting olanzapine 5mg po HS. Olanzapine 5mg ODT prn agitation/psychosis and holding home Adderall for now Ativan 1mg PO BID PRN anxiety/agitation Will need continued psychiatry support Appears stable, doing well from a medical perspective Patient and calm and cooperative, continue 1:1, safe tray and suicidal precautions for now Substance Use 02:30 urine tox screen: + amphetamines. Patient is on Adderall. Final drug screen pending Patient admitted to using marijuana during child but initially denied other drug use, but later found to have taken Suboxone brought by around 1400 on 01/24 Admitted to taking non-prescribed Suboxone throughout and after CYS involved with CM regarding care of child, currently with grandparents Post status Reported home vaginal delivery of living female child on 01/16/24 per patient Having some post- vaginal bleeding Pelvic US showed endometrial canal is distended and filled with complex hypoechoic debris, likely represents blood products and no abnormal color flow is shown to suggest retained products of conception. ER physician spoke to OBMARCUS, Dr Piña care information associate who did not recommend anything urgent and felt was normal given patient did not receive medical care with delivery Dr. Bernstein saw patient today - recommends against breast feeding or giving pumped milk to baby for [address] in system Patient unsure if she wants to continue nursing - has been applying warm compresses and pumping for comfort Discussed with obgyn RN, will try to send someone from dept for further nursing education, reassurance Hypomagnesemia Hypokalemia Replaced DVT Prophylaxis: Ambulate Code: FULL Dispo: Admit to med/surg, remains in psych ED bed Admit med surg Pt was seen and care coordinated with Dr. Pfeiffer. See addendum I spent a total of 55 minutes reviewing notes, outpatient records, labs, medication, coordinating, documenting and providing care for this patient excluding time spent in the performance of separately billed services. Admission and Anticipated Discharge Date Admission Date: January 25, 2024 Supervising Physician Co-Signing Physician Notes Pt not seen personally. Noted to be stable per d/w Danielle PALACIO. Pending psychiatric disposition. Subjective Patient seen and examined in A6. Has been writing down notes and asked to read them to RN and myself. Expressing a lot of anxiety over hospitalization, medications and baby. Looking forward to visiting. Asking repeatedly when she can go home. No F/C, CP, SOB, N/V, abd pain. Denies additional loose stools or abdominal discomfort. Having some post vaginal bleeding. Breasts feel swollen and sore, R>L. RN says patient was up moving around all night except for 2 hour nap this AM. Refused last night's Olanzapine dose. Review of Systems Review of Systems: At least ten systems reviewed and negative except as noted in the HPI. Physical Exam Physical Exam: Gen: WD/WN, NAD, sitting on the floor writing notes, slow to speak, needs to be redirected HEENT: Normocephalic, atraumatic, mucous membranes moist Lung: Clear to Auscultation bilaterally Heart: Regular rate, regular rhythm Abdomen: Soft, NT, ND +BS x 4 Extremities: no edema Skin: Warm, no rash Results & Data Results & Data Vital Signs (Past 12 Hours) Vital Signs Temp Pulse Resp BP Pulse Ox 01/27/24 11:26 36.7 C 109 H 18 151/106 H 100 Diagnostic Findings Pelvis Ultrasound 01/25/24 15:47 ULTRASOUND OF THE PELVIS CLINICAL HISTORY: Vaginal bleeding. . COMPARISON STUDY: No priors TECHNIQUE: Real-time, grayscale, and color flow sonography of the pelvis is performed transabdominally. Images are reviewed in the transverse and longitudinal planes. FINDINGS: Uterus: The postgravid uterus is enlarged and heterogeneous, measuring 11.9 x 6.6 x 8.6 cm. Endometrium: The endometrial canal is distended and filled with complex hypoechoic debris. No abnormal vascularity is shown on color imaging Ovaries: The left ovary was not visualized due to overlying bowel gas. The right ovary is normal as imaged, measuring 3.5 x 1.8 x 1.5 cm. Normal Doppler waveforms are shown within the right ovary. Pelvis: There is no free fluid in the cul-de-sac. No concerning adnexal lesion is seen. IMPRESSION: 1. The postgravid uterus is enlarged and heterogeneous. 2. The endometrial canal is distended and filled with complex hypoechoic debris. This likely represents blood products. No abnormal color flow is shown to suggest retained products of conception. Clinical follow-up will be required. 3. The right ovary is normal as imaged. 4. Nonvisualization of the left ovary. ACT 112: Negative or not required by law. Electronically signed by: Eloy Coronado M.D. 01/25/2024 4:46 PM
[2024-01-27] MEDS ORDERED: LORazepam 1 MG TAB PO PRN (15:18)
--- NOTE | 2024-01-27 15:37 | Consultation ---
Date of Consultation January 27, 2024 History of Present Illness Reason for Consultation: 33 f s/p home delivery post 11 days with suicidal ideations now in the ER. No care and home delivery. Baby in grandparents custody at this time. Patient is on suicide watch now. Has used methamphetamine recently. With positive drug screen. This case ws previously discussed with ER physician Dr. Sam with Dr. Piña. Should not be breast feeding for 1 week until the drug is out of her system. Discussed with Danielle Agudelo PA-C Attending Physician: Vanessa Pfeiffer MD Allergies Allergy/AdvReac Type Severity Reaction Status Date / Time No Known Allergies Allergy Unverified 01/25/24 00:13 Home Medications Medication Instructions Recorded Confirmed Type Adderall 20 mg PO BID 01/25/24 01/25/24 History Patient History Medical History ADHD Social History (Updated 01/25/24 @ 20:06 by Gala George PA-C) Smoking Status: Unknown if ever smoked Hx Alcohol Use: No Hx Substance Use: Yes Substance Use Type Other:: Suboxone, Adderall Preferred Language: Pashto Communication Ability: Impaired Store Operations Specialist Required: No Current Living Situation: Spouse Other Information That Helps Us Care for You: No Feels Safe at Home: Yes Safety Concerns: Feels Safe At This Time Assistive Devices: None Results & Data Vital Signs (Past 12 Hours) Vital Signs Temp Pulse Resp BP Pulse Ox 01/27/24 11:26 36.7 C 109 H 18 151/106 H 100
[2024-01-27] MEDS: MELATONIN 3 MG TAB PO PRN (21:13)
--- NOTE | 2024-01-27 21:17 | Psychiatric Progress Note ---
Date of Service January 27, 2024 Impression / Recommendations Impression Mariella is a 33 yo woman 11 days s/p delivery of baby girl with no OB nor care presented to the emergency department seeking care for her infant and found to have psychosis and manic behavior, now on 302 commitment and admitted medically due to new vaginal bleeding. Psychiatry involved for post psychosis. Although less agitated continues to have poor insight. Remains paranoid and with ongoing bizarre/odd behavior. She continues to meet involuntary 302 commitment criteria & remains on a 302 commitment which will on 01/30/24. If patient is still here will assess for possible extension of commitment to 303 when closer to that date. This patient must remain on safety precautions with a 1-on-1 and is unable to leave the hospital AMA. CYS involved and are determining disposition of . Overall, I spent a total of 80 minutes with this case, including review of chart, direct evaluation of the patient, counseling the patient, communication with family, reviewing medication, coordination of care with hospitalist service, risk assessment, and documentation. (1) psychosis: Plan -Must remain on 1-on-1, cannot leave AMA -On 302 commitment, inpatient psychiatry bed search pending medical clearance. Expires on 01/30/24 -Medications: * Continue olanzapine 5mg HS po * Olanzapine 5mg BID prn ODT for agitation/psychosis * Can also utilize ativan 1mg BID prn po for agitation if preferred * Hold prior to admission Adderall given current episode of psychosis -For behavioral emergency: Decrease olanzapine to 5 mg IM x 1 (DO NOT exceed 20mg via IM sources per 24 hours, check EKG if IM dose required, NEVER co- administer with IM or IV benzodiazepines). Risk Factors Assessment Mental Health Diagnoses: Yes Substance Use Disorders: Yes Protective Factors Assessment : Yes Responsible for Young Children: Yes Stable Relationships: Yes Supportive Family: Yes Interval History Identifying Information 33 year old F currently on a 302 for post- psychosis, being monitored for suboxone withdrawal. Baby born on 01/16/24 with CYS involvement currently. Psychiatric bed search ongoing. Chief Complaint Post- psychosis Subjective Subjective Patient was seen & assessed and interval progress reviewed with psychiatric liaison. Patient sitting in room with mom at bedside - observed to have multiple pieces of paper covered with extensive writing. She reads from this paper several times and it seems she has been writing down various details of her stay here and of events leading up to coming to ER. Difficult to make sense of the writing whenever she does read from it. Some IOR noted as well as some paranoia. Is notably disheveled. ALthough is pleasant and cooperative during interview, lacks insight into why she is on a 302 and why there are safety concerns about . Noted to perseverate and ruminate on the fact that she and only came to ER to have assessed under direction of gray mixing operator - is unable to appreciate why staff had any further concerns. Is unable to meaningfully discuss her initial presentation and need for IM medication - states she was too "upset". Has been observed by staff to have been sitting on the floor writing extensively with bizarre preoccupation with these writing, other times has been observed inappropriately lifting her shirt to show that she is lactating - does not seem to appreciate the inappropriate nature of behaviors. Patient reports that she had no care because she was unable to afford it and because she wanted a home because she wanted to deliver the baby himself - "that was really important to me". When questioned about giving of Ash ulloa says this was because they were driving to the hospital - however they never went to hospital after to have c are for baby nor for herself. Does not demonstrate any insight into the risk associated with this. Spoke to patients mom alone without patient . She expressed that she had offered patient to help pay for care and patient refused, then shortly into stopped talking to mom and mom had no contact with them until the day prior when she found out the baby was born due to CYS involvement with the case. She is unsure what the custody status is at this time. Physical Exam Psychiatric Orientation: alert, oriented to person, oriented to place and oriented to time Apperance: appropriately dressed Eye Contact: + fair eye contact Motor Behavior: no abnormal motor movements and + psychomotor agitation (restless) Speech: normal rate/rhythm/volume of speech (increased latency) Affect: + depressed affect (constricted) and + anxious affect Mood: + anxious mood and + dysphoric mood Thought Process: + circumstantial thought process, + tangential thought process and + looseness of associations Thought Content: + preoccupation Suicidal Thoughts: denies suicidal thoughts Homicidal Thoughts: denies homicidal thoughts Insight: + poor insight Judgment: + poor judgement Vital Signs (Past 24 Hours) Last Vital Signs Temp 36.7 C 01/27/24 11:26 Pulse 109 H 01/27/24 11:26 Resp 18 01/27/24 11:26 BP 151/106 H 01/27/24 11:26 Pulse Ox 100 01/27/24 11:26 O2 Del Method Room Air 01/26/24 00:21 Results & Data ([facility]) Current Inpatient Medications Current Inpatient Medications: Current Inpatient Medications Acetaminophen (Acetaminophen 325 Mg Tab) 650 mg PO Q4H PRN PRN Reason: pain/fever Stop: 02/24/24 21:28 Last Admin: 01/27/24 19:36 Dose: 650 mg Ibuprofen (Ibuprofen 200 Mg Tab) 400 mg PO Q6H PRN PRN Reason: Pain or Fever Stop: 02/26/24 15:16 Lorazepam (Lorazepam 1 Mg Tab) 1 mg PO BID PRN PRN Reason: Anxiety/Agitation Stop: 02/26/24 20:59 Magnesium Oxide (Magnesium Oxide 400 Mg Tab) 400 mg PO BID [facility] Stop: 02/24/24 20:59 Last Admin: 01/27/24 20:38 Dose: 400 mg Melatonin (Melatonin 3 Mg Tab) 3 mg PO HS PRN PRN Reason: Sleep Stop: 02/26/24 20:41 Last Admin: 01/27/24 21:13 Dose: 3 mg Olanzapine (Olanzapine 5 Mg Tablet) 5 mg PO HS [facility] Stop: 02/24/24 20:59 Last Admin: 01/27/24 20:33 Dose: Not Given Olanzapine (Olanzapine Zydis 5 Mg Orally Dis. Tab) 5 mg PO BID PRN PRN Reason: Agitation/Psychosis Stop: 02/24/24 20:59 Ondansetron HCl (Ondansetron Inj 2 Mg/Ml 2 Ml Vial) 4 mg IV Q6H PRN PRN Reason: Nausea Stop: 02/24/24 21:28 Polyethylene Glycol (Polyethylene (Miralax) 17 Gm Pack) 17 gm PO DAILY PRN PRN Reason: Constipation Stop: 02/24/24 21:28 Prenat Multivit/[place]/Iron/Folic Ac ( Vitamin 1 Tab) 1 tab PO QAM [facility] Stop: 02/24/24 11:59 Last Admin: 01/27/24 08:30 Dose: 1 tab
[2024-01-27] MEDS: IBUPROFEN 200 MG TAB PO PRN (23:36)
[2024-01-28 05:53] VITALS: TEMP 97.9
[2024-01-28 07:36] VITALS: BP 146/95; PULSE 105; RESP 20; O2SAT 99
--- NOTE | 2024-01-28 10:00 | Hospitalist Progress Note ---
Date of Service January 28, 2024 Assessment & Plan (1) psychosis: (2) ADHD: (3) Hypokalemia: Plan Patient is 33 year old female with PMH ADHD and recent vaginal delivery presented to ER on 01/24/24 for concern for her baby and was found to be manic and have psychosis. psychosis Initially in ER patient was given Haldol 5 mg IM and Ativan 2 mg IM. Labs unremarkable except for K: 3.3, UA unremarkable Psychiatrist was consulted and diagnosed psychosis and recommended admission Patient was placed under 302 and search for psychiatry bed was attempted but failed. Psych consult. Recommends starting olanzapine 5mg po HS. Olanzapine 5mg ODT prn agitation/psychosis and holding home Adderall for now Ativan 1mg PO BID PRN anxiety/agitation , Melatonin HS Appears stable, doing well from a medical perspective Patient and calm and cooperative, continue 1:1, safe tray and suicidal precautions for now Will need continued psychiatry support - reached out to Dr. Tang to consider inpt [facility] admission as pt is in need of significant psychiatric support that the ED is not able to provide Substance Use 02:30 urine tox screen: + amphetamines. Patient is on Adderall. Final drug screen pending Patient admitted to using marijuana during child but initially denied other drug use, but later found to have taken Suboxone brought by around 1400 on 01/24 Admitted to taking non-prescribed Suboxone throughout and after CYS involved with CM regarding care of child, currently with grandparents Post status Reported home vaginal delivery of living female child on 01/16/24 per patient Having some post- vaginal bleeding Pelvic US showed endometrial canal is distended and filled with complex hypoechoic debris, likely represents blood products and no abnormal color flow is shown to suggest retained products of conception. ER physician spoke to OBMARCUS, Dr Piña control specialist who did not recommend anything ur gent and felt was normal given patient did not receive medical care with delivery Dr. Bernstein saw patient today - recommends against breast feeding or giving pumped milk to baby for [address] drugs in system Patient unsure if she wants to continue nursing - has been applying warm compresses and pumping for comfort Discussed with obgyn RN, will try to send someone from dept for further nursing education, reassurance Hypomagnesemia Hypokalemia Replaced DVT Prophylaxis: Ambulate Code: FULL Dispo: Admit to med/surg, remains in psych ED bed Admit med surg Pt was seen and care coordinated with Dr. Pfeiffer. I spent a total of 51 minutes reviewing notes, outpatient records, labs, medication, coordinating, documenting and providing care for this patient excluding time spent in the performance of separately billed services. Admission and Anticipated Discharge Date Admission Date: January 25, 2024 Supervising Physician Co-Signing Physician Notes Pt was seen and examined at bedside. Pt stable medically for dc to psychiatric unit. case d/w mike PALACIO. agree w/ A and P as above. Subjective Pt seen as ED hold in A6 for post psychosis. She feels she is feeling better and her, "Boobs are less angry today." "I'm having more panic attacks and ativan seems to help." "I want to avoid the psych meds." She feels like she has withdrawn from the Adderall and suboxone. She would like her mom to come stay with her tonight. Her mom said that her and patients in laws are helping with custody of baby. Pt is hyper fixated on babies feeding schedule. She is also fixated on rationing her food to ensure she has enough intake to help her milk supply. She does not seem to be pumping enough as she says maybe only 2-3x a day. She has a good appetite. She denies self harm or h.i. She feels feverish and chilled. She denies lightheaded, dizziness, n/v/d. Pts mother was on the phone for our entire visit and feels pt has more clarity over the last 2 days and she agrees that the psych meds make her more confused. Pt still with vaginal bleeding and feels its getting less and less each day except when she is more active. Review of Systems Review of Systems: All systems reviewed & are unremarkable except as noted in HPI & below Physical Exam Physical Exam: Gen: Thin, petite female, sitting at edge of bed, appears to be anxious, NAD, A&O x3 HEENT: Normocephalic, atraumatic, conjunctivae moist, sclerae anicteric, mucous membranes moist. Lung: Clear to Auscultation bilaterally, no wheezes/rales/rhonchi Chest: breasts are regular in shape/size, L breast at 12oclock firm nodule, not painful or red, likely clogged duct, no signs of mastitis Heart: Regular rate, regular rhythm, no murmurs, rubs, or gallops Abdomen: Soft, NT, ND +BS x 4 Extremities: No edema Skin: Warm, no rash, negative turgor. Results & Data Results & Data Vital Signs (Past 12 Hours) Vital Signs Temp Pulse Pulse Resp BP BP Pulse Ox 01/28/24 07:34 36.6 C 105 H 20 146/95 H 99 01/28/24 05:30 36.6 C 78 18 137/90 100 O2 Del Method 01/28/24 07:34 Room Air 01/28/24 05:30 Medications Administered Current Inpatient Medications Acetaminophen (Acetaminophen 325 Mg Tab) 650 mg PO Q4H PRN PRN Reason: pain/fever Stop: 02/24/24 21:28 Last Admin: 01/28/24 09:53 Dose: 650 mg Ibuprofen (Ibuprofen 200 Mg Tab) 400 mg PO Q6H PRN PRN Reason: Pain or Fever Stop: 02/26/24 15:16 Last Admin: 01/28/24 07:33 Dose: 400 mg Lorazepam (Lorazepam 1 Mg Tab) 1 mg PO BID PRN PRN Reason: Anxiety/Agitation Stop: 02/26/24 20:59 Magnesium Oxide (Magnesium Oxide 400 Mg Tab) 400 mg PO BID WALTER Stop: 02/24/24 20:59 Last Admin: 01/28/24 07:31 Dose: 400 mg Melatonin (Melatonin 3 Mg Tab) 3 mg PO HS PRN PRN Reason: Sleep Stop: 02/26/24 20:41 Last Admin: 01/27/24 21:13 Dose: 3 mg Olanzapine (Olanzapine 5 Mg Tablet) 5 mg PO HS WALTER Stop: 02/24/24 20:59 Last Admin: 01/27/24 20:33 Dose: Not Given Olanzapine (Olanzapine Zydis 5 Mg Orally Dis. Tab) 5 mg PO BID PRN PRN Reason: Agitation/Psychosis Stop: 02/24/24 20:59 Ondansetron HCl (Ondansetron Inj 2 Mg/Ml 2 Ml Vial) 4 mg IV Q6H PRN PRN Reason: Nausea Stop: 02/24/24 21:28 Polyethylene Glycol (Polyethylene (Miralax) 17 Gm Pack) 17 gm PO DAILY PRN PRN Reason: Constipation Stop: 02/24/24 21:28 Prenat Multivit/Psychiatric Rn/Iron/Folic Ac ( Vitamin 1 Tab) [facility] [place] Stop: 02/24/24 11:59 Last Admin: 01/28/24 07:29 Dose: 1 tab
[2024-01-28 14:41] LABS: Amphetamine Urine, Confirm 1897 ng/mL (<250); Methamphetamine, Ur Confirm NEGATIVE ng/mL (<250)
[2024-01-28 14:41] LABS: Amphetamine Urine, Confirm 5457 ng/mL (<250); Methamphetamine, Ur Confirm NEGATIVE ng/mL (<250)
--- NOTE | 2024-01-28 16:08 | Discharge Summary ---
Discharge Summary Date of Service January 28, 2024 Principal Dx & Hospital Course #1 = Principal Diagnosis (1) psychosis: (2) ADHD: (3) Hypokalemia: Plan Patient is 33 year old female with PMH ADHD and recent vaginal delivery presented to ER on 01/24/24 for concern for her baby and was found to be manic and have psychosis. psychosis Initially in ER patient was given Haldol 5 mg IM and Ativan 2 mg IM. Labs unremarkable except for K: 3.3, UA unremarkable Psychiatrist was consulted and diagnosed psychosis and recommended admission Patient was placed under 302 and search for psychiatry bed was attempted but failed. Psych consult. Recommends starting olanzapine 5mg po HS. Olanzapine 5mg ODT prn agitation/psychosis and holding home Adderall for now Ativan 1mg PO BID PRN anxiety/agitation , Melatonin HS Appears stable, doing well from a medical perspective Patient and calm and cooperative, continue 1:1, safe tray and suicidal precautions for now Will need continued psychiatry support - reached out to Dr. Tang to consider inpt U admission as pt is in need of significant psychiatric support. They are agreeable and pt will be discharged to U later today Substance Use 02:30 urine tox screen: + amphetamines. Patient is on Adderall. Final drug screen pending Patient admitted to using marijuana during child but initially denied other drug use, but later found to have taken Suboxone brought by around 1400 on 01/24 Admitted to taking non-prescribed Suboxone throughout and after CYS involved with CM regarding care of child, currently with grandparents Post status Reported home vaginal delivery of living female child on 01/16/24 per patient Having some post- vaginal bleeding Pelvic US showed endometrial canal is distended and filled with complex hypoechoic debris, likely represents blood products and no abnormal color flow is shown to suggest retained products of conception. ER physician spoke to OBGYN, Dr Piña computational physicist who did not recommend anything urgent and felt was normal given patient did not receive medical care with delivery Dr. Bernstein saw patient today - recommends against breast feeding or giving pumped milk to baby for [address] in system Patient wishes to continue nursing, she is encouraged to pump q3hr. Please reach out to mother baby unit for breast feeding supplies as she needs continue to apply warm compresses and pumping for comfort Hypomagnesemia Hypokalemia Replaced DVT Prophylaxis: Ambulate Code: FULL Dispo: Discharge to U later today Admit med surg Notes For Next Care Provider Please ensure patient has follow up with Primary Care Provider upon discharge. Continue to hold Adderall. Medication Changes From Visit Hold Adderall Please see discharge instructions for medication changes Admission HPI Per Admitting Provider Patient is 33 year old female with PMH ADHD and recent vaginal delivery presented to ER on 01/24/24 for concern for her baby. It is reported per ER chart review that patient was noted to be manic and have psychotic features. Initially in ER patient was given Haldol 5 mg IM and Ativan 2 mg IM. Patient was placed under 302 and search for psychiatry bed was attempted. Psychiatrist was consulted and diagnosed psychosis and recommended admission. It is reported that patient's infant has been hospitalized here at [facility] and is in nursery secondary to patients current mental status. During ER course patient was able to sleep and she currently reports is feeling much better. She has not required any additional medication. is at bedside. Patient admits hasn't been sleeping and hasn't been eating much. 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 Denies fever/chills, diaphoresis, N/V/D/C, STODDARD, dizziness, syncope, CP, SOB, cough, rhinorrhea, abdominal pain, extremity weakness, extremity edema, rashes, urinary symptoms. Patient currently denies SI/HI. PDMP reviewed and Adderall filled on a monthly basis, last filled on 01/12/2024 for 30-day supply States used marijuana during labor and delivery last week but otherwise does not use recreational drugs. During ER course case management has attempted getting patient placed for psychiatric admission however am told that she has not been accepted anywhere given her status. Pelvic US showed endometrial canal is distended and filled with complex hypoechoic debris, likely represents blood products and no abnormal color flow is shown to suggest retained products of conception. ER physician spoke to Dr Wang SNIDER computational physicist who did not recommend anything urgent and felt was normal and would be willing to see patient in consultation Admission Exam Per Admitting Provider General: no acute distress, WDWN Head: normocephalic, atraumatic Eyes: conjunctiva non-injected, anicteric Lungs: clear, no respiratory distress, no wheezing/rhonchi/rales CV: RRR, no murmur, no pretibial edema Abd: normal BS, soft, non-tender Ext: no cyanosis, no calf tenderness Neuro: A&O x 3, normal affect Skin: warm, dry Discharge Exam Gen: Thin, petite female, sitting at edge of bed, appears to be anxious, NAD, A&O x3 HEENT: Normocephalic, atraumatic, conjunctivae moist, sclerae anicteric, mucous membranes moist. Lung: Clear to Auscultation bilaterally, no wheezes/rales/rhonchi Chest: breasts are regular in shape/size, L breast at 12oclock firm nodule, not painful or red, likely clogged duct, no signs of mastitis Heart: Regular rate, regular rhythm, no murmurs, rubs, or gallops Abdomen: Soft, NT, ND +BS x 4 Extremities: No edema Skin: Warm, no rash, negative turgor. Updated Medication List Medication Instructions Recorded Confirmed Type melatonin 3 mg tablet 3 mg PO HS PRN sleep #30 tabs 01/29/24 Rx olanzapine 5 mg tablet 2.5 mg (1/2 x 5 mg) PO HS #30 tabs 01/29/24 Rx vits no.124-ferrous fum 1 tab PO QAM #30 tabs 01/29/24 Rx 27 mg iron-folic acid 800 mcg tablet ( Vitamin) Hospital Stay Data Consultations 01/25/24 10:13 Consult Psychiatry Stat 01/25/24 18:32 ED Decision to Admit Stat 01/25/24 21:29 Consult Obstetrics Routine Consult Psychiatry Routine Diagnostic Imagining Performed Pelvis Ultrasound 01/25/24 15:47 ULTRASOUND OF THE PELVIS CLINICAL HISTORY: Vaginal bleeding. . COMPARISON STUDY: No priors TECHNIQUE: Real-time, grayscale, and color flow sonography of the pelvis is performed transabdominally. Images are reviewed in the transverse and longitudinal planes. FINDINGS: Uterus: The postgravid uterus is enlarged and heterogeneous, measuring 11.9 x 6.6 x 8.6 cm. Endometrium: The endometrial canal is distended and filled with complex hypoechoic debris. No abnormal vascularity is shown on color imaging Ovaries: The left ovary was not visualized due to overlying bowel gas. The right ovary is normal as imaged, measuring 3.5 x 1.8 x 1.5 cm. Normal Doppler waveforms are shown within the right ovary. Pelvis: There is no free fluid in the cul-de-sac. No concerning adnexal lesion is seen. IMPRESSION: 1. The postgravid uterus is enlarged and heterogeneous. 2. The endometrial canal is distended and filled with complex hypoechoic debris. This likely represents blood products. No abnormal color flow is shown to suggest retained products of conception. Clinical follow-up will be required. 3. The right ovary is normal as imaged. 4. Nonvisualization of the left ovary. ACT 112: Negative or not required by law. Electronically signed by: Eloy Coronado M.D. 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 Please follow up with your primary care provider upon discharge from the [facility]. Total Time Total Time Spent Total Time Spent (In Minutes): 35 minutes Supervising Physician Co-Signing Physician Notes Pt was seen and examined at bedside. Pt stable medically for dc to psychiatric unit. case d/w mike PALACIO. agree w/ A and P as above.
== END 2024-01-28 18:41 | DRG 885 ==
LOC: ED 23:25 → SUATTDRO 01-25 19:00 → EDINP 01-25 19:00

== ENCOUNTER 2024-01-28 15:50 | Inpatient (IN) ==
[2024-01-28] MEDS ORDERED: SODIUM CHLORIDE 0.65% NA SOLN 45 ML (OCEAN) PRN (16:09)
[2024-01-28] MEDS ORDERED: MAGNESIUM HYDROXIDE SUSP 30 ML UDC PO PRN (16:09)
[2024-01-28] MEDS ORDERED: ALUMINUM/MAGNESIUM SUSP 30 ML UDC PO PRN (16:09)
[2024-01-28] MEDS ORDERED: BISMUTH SUBSALICYLATE 262 MG CHEW PO PRN (16:09)
[2024-01-28] MEDS ORDERED: IBUPROFEN 200 MG/10 ML UDC PO PRN (19:41)
[2024-01-28 20:32] VITALS: O2SAT 100
[2024-01-28] MEDS: MAGNESIUM OXIDE 400 MG TAB PO SCH (21:05)
[2024-01-28] MEDS: IBUPROFEN 200 MG TAB PO PRN (21:06)
[2024-01-28] MEDS: OLANZapine 5 MG TABLET PO SCH (21:41)
[2024-01-28] MEDS: MELATONIN 3 MG TAB PO PRN (22:44)
[2024-01-28] MEDS: hydrOXYzine HCl 25 MG TAB PO PRN (23:37)
[2024-01-28] MEDS ORDERED: OLANZapine ZYDIS 5 MG ORALLY DIS. TAB PO PRN (23:59)
[2024-01-29] MEDS: ACETAMINOPHEN 325 MG TAB PO PRN (00:43)
[2024-01-29] MEDS ORDERED: DIPHENOXYLATE/ATROPINE 2.5/0.025MG TAB PO PRN (01:06)
[2024-01-29] MEDS: cloNIDine HCL 0.1 MG TAB PO PRN (02:05)
[2024-01-29] MEDS: hydrOXYzine HCl 25 MG TAB PO PRN (04:57)
[2024-01-29] MEDS: PRENATAL VITAMIN 1 TAB PO SCH (08:47)
--- NOTE | 2024-01-29 11:25 | History & Physical ---
Date of Service January 29, 2024 Impression / Recommendations Risk Factors Assessment Do You Have Access To A Gun?: Yes Psychiatric History Identifying Data 33 year old F admitted on a 302 for post- psychosis. Baby born on 01/16/24 with CYS involvement currently. Chief Complaint "It's better on the unit here than downstairs". History of Present Illness 33 year old F admitted on a 302 for post- psychosis & currently undergoing withdrawal from suboxone. Suboxone use - Past Psychiatric History Current Psychiatric Diagnosis: Psychosis Do You Have Access To A Gun?: Yes History of Previous Suicide Attempt: No Allergies Allergy/AdvReac Type Severity Reaction Status Date / Time No Known Allergies Allergy Unverified 01/25/24 00:13 Home Medications Medication Instructions Recorded Confirmed Type Adderall 20 mg PO BID 01/25/24 01/25/24 History acetaminophen 325 mg tablet 650 mg (2 x 325 mg) PO Q4H PRN 01/28/24 Rx pain (scale score 1-3) #1 tab ibuprofen 200 mg tablet 400 mg (2 x 200 mg) PO Q6H PRN 01/28/24 Rx pain (scale score 4-6) #1 tab lorazepam 1 mg tablet 1 mg PO BID PRN anxiety #1 tab 01/28/24 Rx olanzapine 5 mg disintegrating 5 mg PO BID PRN psychosis #1 tab 01/28/24 Rx tablet olanzapine 5 mg tablet 5 mg PO HS #1 tab 01/28/24 Rx vits no.124-ferrous fum 1 tab PO QAM #1 tab 01/28/24 Rx 27 mg iron-folic acid 800 mcg tablet ( Vitamin) Family History Family History of: Doesn't Know Alcohol History Hx of Alcohol Use Over the Past 12 Months: No Smoking Use Have You Smoked or Used Tobacco Products in the Last 30 Days: No Smoking Status: Unknown if ever smoked Substance History Hx of Prescription Med Misuse Over the Past 12 Months: No Hx of Over the Counter Med Misuse Over the Past 12 Months: No Hx of Inhalent Misuse Over the Past 12 Months: No Hx of Organic Substance Use Over the Past 12 Months: No Hx of Illegal Substances/Street Drug Use Over Past 12 Months: Yes (suboxone (not prescribed)) Problems as a Result of Past Substance Use: Other Problems as a Result of Past Substance Use Comments: Risk to baby Personal History Living Arrangements: Home Highest Grade Completed: High School Graduate Marital Status: Number Of Children: 1 Beliefs That Will Affect Care: None Patient History Medical History ADHD Social History (Updated 01/25/24 @ 20:06 by Gala George PA-C) Smoking Status: Unknown if ever smoked Hx Alcohol Use: No Hx Substance Use: Yes Substance Use Type Other:: Suboxone, Adderall Preferred Language: Kosovan Communication Ability: Effective Branch 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: No Beliefs That Will Affect Care: None Current Living Situation: Spouse Feels Safe at Home: Yes Gender Identity: Female Assistive Devices: None Physical Exam Mental Examination: Appearance: Well Groomed Eye Contact: Maintains Eye Contact Motor Behavior: Restless Speech: Normal Mood: Calm and Tearful Affect: Calm, Stable and Suspicious Insight: Fair Judgement: Poor Vital Signs (Past 24 Hours): Last Vital Signs Temp 36.6 C 01/29/24 06:51 Pulse 75 01/29/24 06:52 Resp 16 01/29/24 06:51 BP 131/88 01/29/24 06:52 Pulse Ox 100 01/29/24 02:08 O2 Del Method Room Air 01/29/24 02:08 Results & Data ([facility]) Current Inpatient Medications Current Inpatient Medications: Current Inpatient Medications Acetaminophen (Acetaminophen 325 Mg Tab) 650 mg PO Q4H PRN PRN Reason: Headache or Minor Fever Stop: 02/27/24 16:08 Last Admin: 01/29/24 07:24 Dose: 650 mg Al Hydrox/Mg Hydrox/Simethicone (Aluminum/Magnesium Susp 30 Ml Udc) 30 ml PO Q4H PRN PRN Reason: GI Upset Stop: 02/27/24 16:08 Bismuth Subsalicylate (Bismuth Subsalicylate 262 Mg Chew) 2 tab PO Q30M PRN PRN Reason: Loose Stool/Diarrhea Stop: 02/27/24 16:08 Clonidine HCl (Clonidine Hcl 0.1 Mg Tab) 0.1 mg PO Q2H PRN PRN Reason: For ANY 2 Symptoms Stop: 02/28/24 01:05 Last Admin: 01/29/24 10:48 Dose: 0.1 mg Diphenoxylate HCl/Atropine (Diphenoxylate/Atropine 2.5/0.025mg Tab) 1 tab PO Q4H PRN PRN Reason: Abdominal Cramping/Diarrhea Stop: 02/28/24 01:05 Hydroxyzine HCl (Hydroxyzine Hcl 25 Mg Tab) 50 mg PO HSZ PRN PRN Reason: Insomnia Stop: 02/27/24 16:08 Last Admin: 01/29/24 00:39 Dose: 50 mg Hydroxyzine HCl (Hydroxyzine Hcl 25 Mg Tab) 25 mg PO Q4H PRN PRN Reason: Anxiety Stop: 02/27/24 16:08 Last Admin: 01/29/24 04:57 Dose: 25 mg Ibuprofen (Ibuprofen 200 Mg Tab) 400 mg PO Q4H PRN PRN Reason: Pain or Fever Stop: 02/27/24 20:59 Last Admin: 01/29/24 08:49 Dose: 400 mg Magnesium Hydroxide (Magnesium Hydroxide Susp 30 Ml Udc) 30 ml PO DAILY PRN PRN Reason: Constipation Stop: 02/27/24 16:08 Magnesium Oxide (Magnesium Oxide 400 Mg Tab) 400 mg PO BID WALTER Stop: 02/27/24 20:59 Last Admin: 01/29/24 08:47 Dose: 400 mg Melatonin (Melatonin 3 Mg Tab) 3 mg PO HS PRN PRN Reason: Sleep Stop: 02/27/24 19:46 Last Admin: 01/28/24 22:44 Dose: 3 mg Olanzapine (Olanzapine 5 Mg Tablet) 5 mg PO HS WALTER Stop: 02/27/24 21:59 Last Admin: 01/28/24 21:41 Dose: Not Given Olanzapine (Olanzapine Zydis 5 Mg Orally Dis. Tab) 5 mg PO BID PRN PRN Reason: psychosis/agitation Stop: 02/27/24 23:58 Prenat Multivit/[place]/Iron/Folic Ac ( Vitamin 1 Tab) 1 tab PO QAM WALTER Stop: 02/28/24 08:59 Last Admin: 01/29/24 08:47 Dose: 1 tab Sodium Chloride (Sodium Chloride 0.65% Na Soln 45 Ml ([place])) 1 - 2 sprays NA PRN PRN PRN Reason: Nasal Dryness/Congestion Stop: 02/27/24 16:08
[2024-01-29 13:00] VITALS: RESP 16; TEMP 97.3
--- NOTE | 2024-01-29 14:36 | Discharge Summary ---
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 Suboxone use - Physical Exam Mental Examination Appearance: Well Groomed Eye Contact: Maintains Eye Contact Motor Behavior: Restless Speech: Normal Mood: Calm and Tearful Affect: Calm, Stable and Suspicious Insight: Fair Judgement: Poor Vital Signs (Past 24 Hours) Last Vital Signs Temp 36.3 C L 01/29/24 12:59 Pulse 71 01/29/24 12:59 Resp 16 01/29/24 12:59 BP 145/96 H 01/29/24 12:59 Pulse Ox 100 01/29/24 12:59 O2 Del Method Room Air 01/29/24 12:59 Psychiatric Data See daily stay summary. In short, safety was maintained and the patient was cooperative with care. Medication changes included [] and they tolerated this well. A family session was [held] and safety plan was completed prior to discharge. Day of Discharge Assessment Today the patient voices readiness for discharge. They note improvement in mood and deny thoughts to harm self or others. Thoughts remain organized and they are improved from admission. There is no evidence of psychosis. They agree to take mediations as prescribed and keep follow-up appointments. They are stable for discharge to outpatient level of care. Advance Directives Advance Directives Information Provided: Yes Advance Directives: No Mental Health Advance Directive: No Advance Directives on File: No Living Will: No Power of Ecommerce Manager: No Advance Directives Reason:: Declines as Mental Health Visit. Risk Factors Assessment Do You Have Access To A Gun?: Yes Discharge Plan Discharge Items Patient Disposition: Home - Self-Care Reason For Visit: POST-PARTEM PSYCHOSIS Discharge Diagnosis: psychosis Condition on Discharge: Fair Health Concerns: N/A Activity: Resume your previous activity Non-emergency contact: Primary Care Provider Call non-emergency contact if: your symptoms worsen Follow-up/Referrals: PCP,NO [Primary Care Provider] - Diet: Regular Addtl Attending Provider Instructions: SPECIAL CARE INSTRUCTIONS: 1. Follow through with your scheduled aftercare appointments. If unable to keep an appointment, please call to reschedule. 2. Take your medication only as prescribed. Medication should not be changed or stopped without the approval of your doctor. In the event of worsening symptoms or concerns about side effects, contact your doctor immediately. 3. Utilize new healthy coping skills, anger management skills, and stress management skills learned during your hospitalization. Journal feelings and process them with a support person. Identify stressors or situations that may result in relapse, deterioration or inappropriate behaviors and develop a plan to deal with those issues. 4. If your coping skills are ineffective and you are in crisis, contact your outpatient providers for direction. If unable to reach your providers, please call the [facility] CRISIS LINE AT , go to the [facility] walk-in center at [address], [address], [place], or go to the closest Emergency Room. 5. Avoid alcohol and un-prescribed drugs. 6. You have been provided with the Mental Health Advance Directives Pamphlet for your review. 7. Your condition is stable for discharge to outpatient level of care, but recovery is an ongoing process. Ifthoughts to harm yourself or others return, follow the safety plan developed during your stay. Planning for a safe return home includes securing weapons. Our treatment team recommends weaponsbe removed from the home until your outpatient provider reassesses your progress. In rare cases where the items themselvescannot be removed, guns and ammunitionshould be secured separatelyand keys stored by a reliable personoutside of the home. If you were admitted on an involuntary commitment, the police or other legal authorities may be involved in this process. AFTERCARE APPOINTMENTS: * Please call your insurance company prior to your scheduled appointment to confirm your aftercare providers are covered. Take your insurance information to your appointments. WHO TO CALL AND WHEN: Medical Emergencies: For questions or emergencies related to your hospital stay, please contact the Inpatient Behavioral Health Unit at [phone]. A psychiatric mental health nurse is on-call 13/11 for the Behavioral Health Unit for emergencies At any time you feel your situation is an emergency, you may also call 911 immediately. Pending Studies at Discharge: No Stand-Alone Forms: My [employer] [facility], Smoking Cessation Medications and DC Order Prescriptions: New melatonin 3 mg Tablet 3 mg PO HS PRN (Reason: sleep) Qty: 30 0RF Vitamin 27 mg iron- 800 mcg Tablet 1 tab PO QAM Qty: 30 0RF olanzapine 5 mg Tablet 2.5 mg PO HS Qty: 30 0RF Discontinued Adderall 20 mg PO BID Hold Instructions: Resume on 02/22/24. HOLD UNTIL CLEARED BY PSYCHIATRY THAT IS IT SAFE TO RESUME acetaminophen 325 mg Tablet 650 mg PO Q4H PRN (Reason: pain (scale score 1-3)) Qty: 1 0RF olanzapine 5 mg Tablet 5 mg PO HS Qty: 1 0RF ibuprofen 200 mg Tablet 400 mg PO Q6H PRN (Reason: pain (scale score 4-6)) Qty: 1 0RF lorazepam 1 mg Tablet 1 mg PO BID PRN (Reason: anxiety) Qty: 1 0RF olanzapine 5 mg Tablet,Disintegrating 5 mg PO BID PRN (Reason: psychosis) Qty: 1 0RF Vitamin 27 mg iron- 800 mcg Tablet 1 tab PO QAM Qty: 1 0RF Discharge Orders: Discharge Order (Routine); Ordered 01/29/24 Ordered By: Penelope Tian/Other Patient Handouts: Online Mental Health Support Grp, Understanding Psychosis Admission Data Admit Date/Time: 01/28/24 19:02 Attending Provider: Penelope Tang Admit Provider: Penelope Tang Primary Care Provider: PCP,NO Coding
[2024-01-29 15:32] VITALS: BP 133/91; PULSE 89
== END 2024-01-29 15:51 | disposition home or self-care (01) | DRG 885 ==
LOC: 3S 19:02